=== PATIENT | female | born 1985 | race Two or more races ===

== ENCOUNTER → 2020-04-28 | Emergency (ER) | payer MEDICAID, OTHER ==
[~2020-04-28] VITALS: Ht 170.2 cm; Wt 113.4 kg
[~2020-04-28] MED LIST: LIDOCAINE 1% HCL (LOCAL ANESTH.) INJ 20ML MDV ONE; MIDAZOLAM HCL 5 MG/ML-1ML VIAL IV ONE; PROPOFOL 10 MG/ML 20 ML IV ONE; PROPOFOL 100 ML IV ONE; fentaNYL CITRATE 100 MCG/2 ML VL IV ONE; fentaNYL CITRATE 100 MCG/2 ML VL ONE
[2020-04-28 07:46] VITALS: BP 125/70
== END | disposition home or self-care (01) ==
LOC: ER 01:19
DX: S52.592A Other fractures of lower end of left radius, initial encounter for closed fracture (principal); S52.612A Displaced fracture of left ulna styloid process, initial encounter for closed fracture; F17.210 Nicotine dependence, cigarettes, uncomplicated; W18.39XA Other fall on same level, initial encounter; Y93.89 Activity, other specified; Y92.098 Other place in other non-institutional residence as the place of occurrence of the external cause; Y99.8 Other external cause status
CPT/HCPCS: 25605; 73100; 73110; 94760; 94762; 96374; 99152; 99285; J2001; J2250; J2704; J3010